=== PATIENT | female | born 1940 ===

== ENCOUNTER 2024-08-04 08:07 | Day surgery (SDC) | payer OTHER ==
[2024-07-31 11:32] LABS: HEMATOCRIT 36.3 % (36.0-45.00); HEMOGLOBIN 12.1 g/dL (12.0-15.00); MEAN CELL VOLUME 86.4 fL (80.00-100.00); MEAN CORPUSCULAR HEMOGLOBIN 28.9 pg (27.00-32.0); MEAN CORPUSCULAR HGB CONC 33.4 g/dl (32.0-36.0); PLATELET COUNT 303 K/uL (150-450); RED CELL DISTRIBUTION WIDTH 15.4 % (11.5-14.5)
[2024-07-31 11:34] LABS: URINE APPEARANCE Clear; URINE BILIRRUBIN Negative (NEGATIVE); URINE BLOOD Negative; URINE COLOR Yellow; URINE GLUCOSE Negative (NEGATIVE); URINE KETONE Negative (NEGATIVE); URINE LEUKOCYTE Negative; URINE NITRATE Negative; URINE PROTEIN Negative (NEGATIVE); URINE UROBILINOGEN 0.2 E.U./dl
[2024-07-31 11:35] LABS: URINE BACTERIA 161.5 uL (0.0-1933); URINE EPITHELIAL CELLS 12.5 uL (0.0-38.8); URINE RBC 10.6 uL (0.0-20.8); URINE WBC 6.3 uL (0.0-23.2)
[2024-07-31 11:45] LABS: URINE CAST 0.14 uL (0.0-1.40)
[2024-07-31 12:17] LABS: INR 1.01; PARTIAL THROMBOPLASTIN TIME 26.8 SECONDS (22.0-34.0)
[2024-07-31 12:21] VITALS: BP 146/56
[2024-07-31 12:53] LABS: CALCIUM 9.7 mg/dL (8.5-10.1); CREATININE SERUM 0.57 mg/dL (0.55-1.02); GFR 100.81; POTASSIUM 4.41 mEq/L (3.5-5.1)
[~2024-08-04] VITALS: Ht 165.1 cm; Wt 49.9 kg
[~2024-08-04 08:07] MED LIST: BREZTRI AEROS10.7 GM IH; ENTRESTO 24 MG1 EACH PO; PEPCID40 MG PO; PLAVIX75 MG PO; PROTONIX20 MG PO; SINGULAIR4 M1; SYNTHROID125 MCG PO
[2024-08-04] MEDS ORDERED: METRONIDAZOLE/SODIUM CHLORIDE 500 MG/100 ML PIGGYBACK IV ONE (13:28)
[2024-08-04] MEDS ORDERED: CEFTRIAXONE SODIUM 2,000 MG VIAL ONE (13:28)
[2024-08-04] MEDS ORDERED: HEMOSTATIC MATRIX 1 KIT KIT TOP ONE (14:36)
[2024-08-04] MEDS ORDERED: DIBUCAINE 30 GM TUBE ONE (14:36)
[2024-08-04] MEDS ORDERED: BUPIVACAINE HCL/MPF 0.5% 30ML VIAL ONE (14:37)
[2024-08-04] MEDS ORDERED: LIDOCAINE HCL 1%/EPINEPHRINE 20ML VIAL IJ ONE (14:37)
[2024-08-04] MEDS ORDERED: POVIDONE-IODINE 118 ML BOTT TOP ONE (14:37)
[2024-08-04] MEDS ORDERED: TYLENOL ARTHRI650 MG PO (15:58)
[2024-08-04] MEDS ORDERED: NEURONTIN300 MG PO (15:58)
== END 2024-08-04 19:25 | disposition home or self-care (01) ==
LOC: CIR.AMB 08:07
PROVIDERS: ATTEND Surgery
DX: D12.8 Benign neoplasm of rectum (principal); K62.89 Other specified diseases of anus and rectum; Z88.6 Allergy status to analgesic agent; I10 Essential (primary) hypertension; E03.8 Other specified hypothyroidism; J45.909 Unspecified asthma, uncomplicated; K21.9 Gastro-esophageal reflux disease without esophagitis; M50.20 Other cervical disc displacement, unspecified cervical region